=== PATIENT | female | born 1975 | race Caucasian/White ===

== ENCOUNTER 2018-12-13 00:51 | Emergency (ER) | payer MEDICAID ==
[~2018-12-13] VITALS: Ht 162.6 cm; Wt 63.6 kg
[~2018-12-13 00:51] MED LIST: NO HOME MEDS
[2018-12-13 01:50] LABS: ALANINE AMINOTRANSFERASE 46 U/L (12-78); ALKALINE PHOSPHATASE 79 IU/L (46-116); ANION GAP 12 (8-16); ASPARTATE AMINO TRANSFERASE 21 U/L (10-37); BILIRUBIN,TOTAL 0.5 MG/DL (0.1-1.0); BLOOD UREA NITROGEN 9 MG/DL (7-18); CHLORIDE 102 MMOL/L (99-107); CREATININE 0.75 MG/DL (0.40-0.90); GLUCOSE 109 MG/DL (70-104); POTASSIUM 3.7 MMOL/L (3.5-5.1); SODIUM 136 MMOL/L (135-145); TOTAL CARBON DIOXIDE 22.5 MMOL/L (24-32); TOTAL PROTEIN 8.2 G/DL (6.4-8.2); eGFR 85 ML/MIN
[2018-12-13 01:56] LABS: URINE HCG NEGATIVE (NEG)
[2018-12-13] MEDS ORDERED: normal saline 1000ML IV soln IVB ONE (02:00)
[2018-12-13] MEDS ORDERED: famotidine/PF 10 mg/ml inj IV ONE (02:00)
[2018-12-13] MEDS ORDERED: LIDOcaine Viscous 15ml cup MM PRN (02:00)
[2018-12-13] MEDS ORDERED: morphine 4 MG/ML inj SYRINge IV ONE (02:00)
[2018-12-13] MEDS ORDERED: ondansetron/PF 4mg/2ml inj IV ONE (02:00)
[2018-12-13] MEDS ORDERED: mag hydrox/Alum hydrox/simeth 30ml oral suspension PO ONE (02:00)
[2018-12-13 02:09] LABS: BASOPHILS % (AUTO) 0.6 % (0-1); EOSINOPHILS # (AUTO) 0.2 X10'3 (0-0.9); EOSINOPHILS % (AUTO) 1.9 % (0-6); HEMOGLOBIN 13.7 g/dl (12.0-16.0); LYMPHOCYTES % (AUTO) 24.4 % (21-51); MEAN CORPUSCULAR HEMOGLOBIN 27.2 PG (27.0-31.0); MEAN CORPUSCULAR HGB CONC 33.5 g/dL (33.0-36.5); MEAN CORPUSCULAR VOLUME 81.1 FL (78-98); MEAN PLATELET VOLUME 9.8 FL (7.4-10.4); MONOCYTES # (AUTO) 0.6 X10'3 (0-0.9); MONOCYTES % (AUTO) 7.6 % (2-12); NEUTROPHILS # (AUTO) 5.3 X10'3 (1.8-7.7); NEUTROPHILS % (AUTO) 65.5 % (42-75); PLATELET COUNT 137 X10'3 (140-440); RED BLOOD COUNT 5.05 X10'6 (4.20-5.60); WHITE BLOOD COUNT 8.1 X10'3 (4.5-11.0)
[2018-12-13 02:10] LABS: CLARITY,URINE CLOUDY (Clear); COLOR,URINE YELLOW (Yellow); GLUCOSE, URINE NEGATIVE (Neg); KETONES,URINE NEGATIVE (Neg); LEUKOCYTE ESTERASE ,URINE NEGATIVE (Neg); NITRITES, URINE NEGATIVE (Neg); OCCULT BLOOD,URINE NEGATIVE (Neg); PROTEIN,URINE NEGATIVE (Neg); UROBILINOGEN,URINE 0.2 E.U/dL (0.2-1.0)
[2018-12-13 02:36] LABS: UA COLLECTION TYPE VOIDED
[2018-12-13 02:38] LABS: BACTERIA,URINE NONE SEEN /HPF (Neg); MUCUS STRANDS FEW /LPF (Neg); RBC,URINE NONE SEEN /HPF (0-2); SQUAMOUS EPITHELIAL CELL,UR FEW /LPF (FEW); WBC,URINE 0-4 /HPF (0-4)
[2018-12-13] MEDS ORDERED: FAMO-128 PO (02:45)
[2018-12-13 03:19] VITALS: BP 144/89
== END 2018-12-13 03:26 | disposition home or self-care (01) ==
LOC: VAS 00:51
DX: K29.70 Gastritis, unspecified, without bleeding (principal); Z90.49 Acquired absence of other specified parts of digestive tract; Z98.51 Tubal ligation status; Z79.899 Other long term (current) drug therapy
CPT/HCPCS: 36415; 80053; 81001; 81025; 85025; 85610; 96361; 96374; 96375; 99283; J7030; J2270; J2405; J3490

== ENCOUNTER 2020-05-13 15:28 | Emergency (ER) | payer MEDICAID ==
[~2020-05-13] VITALS: Ht 165.1 cm; Wt 64.5 kg
[~2020-05-13 15:28] MED LIST changes: +FAMO-128 PO
[2020-05-13 16:10] LABS: BASOPHILS % (AUTO) 0.8 % (0-1); EOSINOPHILS # (AUTO) 0.1 X10'3 (0-0.9); EOSINOPHILS % (AUTO) 2.7 % (0-6); HEMATOCRIT 37.7 % (35.0-45.0); HEMOGLOBIN 12.8 g/dl (12.0-16.0); LYMPHOCYTES # (AUTO) 1.8 X10'3 (1.1-4.8); LYMPHOCYTES % (AUTO) 37.1 % (21-51); MEAN CORPUSCULAR HEMOGLOBIN 27.1 PG (27.0-31.0); MEAN CORPUSCULAR HGB CONC 33.9 g/dL (33.0-36.5); MEAN CORPUSCULAR VOLUME 79.7 FL (78-98); MEAN PLATELET VOLUME 8.7 FL (7.4-10.4); MONOCYTES # (AUTO) 0.4 X10'3 (0-0.9); MONOCYTES % (AUTO) 8.1 % (2-12); NEUTROPHILS # (AUTO) 2.5 X10'3 (1.8-7.7); NEUTROPHILS % (AUTO) 51.3 % (42-75); PLATELET COUNT 217 X10'3 (140-440); RED BLOOD COUNT 4.73 X10'6 (4.20-5.60); RED CELL DISTRIBUTION WIDTH 13.5 % (11.5-14.5); WHITE BLOOD COUNT 4.9 X10'3 (4.5-11.0)
[2020-05-13 16:24] LABS: ALANINE AMINOTRANSFERASE 23 U/L (12-78); ALBUMIN/GLOBULIN RATIO 0.9 (1.1-1.5); ALKALINE PHOSPHATASE 75 IU/L (46-116); ANION GAP 9 (8-16); ASPARTATE AMINO TRANSFERASE 14 U/L (10-37); BILIRUBIN,TOTAL 0.2 MG/DL (0.1-1.0); BLOOD UREA NITROGEN 17 MG/DL (7-18); BUN/CREATININE RATIO 23.9 (6.6-38.0); CALCIUM 8.8 MG/DL (8.5-10.1); CHLORIDE 102 MMOL/L (99-107); CREATININE 0.71 MG/DL (0.40-0.90); GLUCOSE 94 MG/DL (70-104); POTASSIUM 3.6 MMOL/L (3.5-5.1); SODIUM 137 MMOL/L (135-145); TOTAL PROTEIN 8.3 G/DL (6.4-8.2); eGFR 90 ML/MIN
[2020-05-13] MEDS ORDERED: acetaminophen 325mg tablet PO ONE (17:25)
[2020-05-13 17:26] VITALS: BP 106/65
[2020-05-13 17:45] LABS: CLARITY,URINE CLEAR (Clear); COLOR,URINE YELLOW (Yellow); GLUCOSE, URINE NEGATIVE (Neg); KETONES,URINE NEGATIVE (Neg); LEUKOCYTE ESTERASE ,URINE SMALL (Neg); NITRITES, URINE NEGATIVE (Neg); OCCULT BLOOD,URINE TRACE-INTACT (Neg); PROTEIN,URINE NEGATIVE (Neg); UROBILINOGEN,URINE 0.2 E.U/dL (0.2-1.0)
[2020-05-13 17:48] LABS: UA COLLECTION TYPE CLN CATCH MIDSTREAM
[2020-05-13 17:55] LABS: BACTERIA,URINE FEW /HPF (Neg); RBC,URINE 0-2 /HPF (0-2); SQUAMOUS EPITHELIAL CELL,UR MODERATE /LPF (FEW); WBC,URINE 0-4 /HPF (0-4)
[2020-05-13 17:56] LABS: MUCUS STRANDS FEW /LPF (Neg); RENAL CELLS, URINE FEW /HPF; TRANSITIONAL EPI CELLS,URINE FEW /HPF
== END 2020-05-13 18:37 | disposition home or self-care (01) ==
LOC: ER 15:29
DX: S39.012A Strain of muscle, fascia and tendon of lower back, initial encounter (principal); R55 Syncope and collapse; M54.5 Low back pain; Z90.49 Acquired absence of other specified parts of digestive tract; Z98.51 Tubal ligation status; Z79.899 Other long term (current) drug therapy; W18.39XA Other fall on same level, initial encounter; Z91.81 History of falling; Y93.E8 Activity, other personal hygiene; Y92.091 Bathroom in other non-institutional residence as the place of occurrence of the external cause; Y99.8 Other external cause status
CPT/HCPCS: 36415; 71045; 80053; 81001; 83880; 84484; 85025; 87088; 93005; 99285

== ENCOUNTER 2022-05-11 01:05 | Emergency (ER) | payer MEDICAID ==
[~2022-05-11] VITALS: Ht 165.1 cm; Wt 66.4 kg
[~2022-05-11 01:05] MED LIST changes: -FAMO-128 PO
[2022-05-11 02:53] VITALS: BP 129/87
[2022-05-11] MEDS ORDERED: acetaminophen 325mg tablet PO ONE (03:05)
== END 2022-05-11 03:21 | disposition left against medical advice (07) ==
LOC: ER 01:05
DX: R07.81 Pleurodynia (principal); Z53.21 Procedure and treatment not carried out due to patient leaving prior to being seen by health care provider

== ENCOUNTER 2023-01-22 08:50 | Outpatient (CLI) | payer MEDICAID | END 2023-01-22 23:59 | disposition home or self-care (01) | LOC: RAD 08:50 | PROVIDERS: ATTEND Family Medicine | DX: K80.20 Calculus of gallbladder without cholecystitis without obstruction (principal); K76.0 Fatty (change of) liver, not elsewhere classified; R10.9 Unspecified abdominal pain | CPT/HCPCS: 76700 ==

== ENCOUNTER 2023-03-26 11:35 | Day surgery (SDC) | payer MEDICAID ==
[~2023-03-26] VITALS: Ht 165.1 cm; Wt 66.7 kg
[2023-03-26] VITALS (9 sets, daily range): BP systolic 125–157; BP diastolic 83–95; PULSE 74–102; RESP 14–26; TEMP 98.4; O2SAT 98–100
[~2023-03-26 11:35] MED LIST changes: +BUPIVAcaine 2.5mg/ml inj 50ml vial (contains preservative) ONE; +INDOCYANINE GREEN 25 MG/10 ML VIAL IV ONE; +LIDOcaine 1% 30ml preserv. free vial ONE; +cefazolin 2gm/D5W 100mL 100 ML IV ONE; +famotidine 20mg tablet PO ONE; +ringers solution, lacted 1,000 ML IV SCH
[2023-03-26] MEDS ORDERED: neostigmine methylsulfate 1 MG/ML 10ml vial ONE (14:04)
[2023-03-26] MEDS ORDERED: sevoflurane 250ml liquid IH ONE (14:04)
[2023-03-26] MEDS ORDERED: glycopyrrolate 0.2mg/ml inj ONE (14:04)
[2023-03-26] MEDS ORDERED: fentaNYL/PF 50MCG/1 ML 2ML syringe ONE (14:09)
[2023-03-26] MEDS ORDERED: midazolam 1 mg/ML 2ml injection ONE (14:10)
[2023-03-26] MEDS ORDERED: morphine 4 MG/ML inj SYRINge IV PRN (14:20)
[2023-03-26] MEDS ORDERED: ringers solution, lacted 1,000 ML IV SCH (14:20)
[2023-03-26] MEDS ORDERED: ondansetron/PF 4mg/2ml inj IV PRN (14:20)
[2023-03-26] MEDS ORDERED: meperidine/PF 25mg/ml syringe IV PRN ×3 (14:20)
[2023-03-26] MEDS ORDERED: morphine 2 MG/ML inj. syringe IV PRN (14:20)
[2023-03-26] MEDS ORDERED: proCHLORperazine 10 MG/2 ml inj IV PRN (14:20)
[2023-03-26] MEDS ORDERED: propofol inj 20 ML IV ONE (14:42)
[2023-03-26] MEDS ORDERED: LIDOcaine 2% (20mg/ml) 5ml vial ONE (14:42)
[2023-03-26] MEDS ORDERED: dexamethasone sod phosphate 4mg/ml inj. ONE (14:42)
[2023-03-26] MEDS ORDERED: ondansetron/PF 4mg/2ml inj ONE (14:42)
[2023-03-26] MEDS ORDERED: rocuronium 10mg/ml inj IV ONE (14:42)
[2023-03-26] MEDS ORDERED: acetaminophen 1,000mg/100ml IV 100 ML IV ONE ×2 (14:43)
[2023-03-26] MEDS ORDERED: metoprolol tartrate 1mg/ml inj IV ONE (14:46)
[2023-03-26] MEDS ORDERED: LIDOcaine 1% 30ml preserv. free vial IJ ONE (14:50)
[2023-03-26] MEDS ORDERED: BUPIVAcaine/PF 2.5 mg/ml (0.25%) 30ml vial IJ ONE (14:50)
[2023-03-26] MEDS ORDERED: meperidine/PF 25mg/ml syringe ONE (15:38)
[2023-03-26] MEDS ORDERED: oxyCODONE/APAP 5-325mg tablet PO PRN (16:10)
== END 2023-03-26 16:45 | disposition home or self-care (01) ==
LOC: PAS 11:35
PROVIDERS: ATTEND Surgery
DX: K80.10 Calculus of gallbladder with chronic cholecystitis without obstruction (principal); Z98.51 Tubal ligation status; Z98.890 Other specified postprocedural states; Z79.899 Other long term (current) drug therapy
CPT/HCPCS: 47563; 82948; J0131; J0690; J1100; J2175; J2250; J2405; J2704; J2710; J3010; J3490; J7030; J7120; S2900; Z7506; Z7508; Z7512; A4215; A4618; A7000

== ENCOUNTER 2023-03-30 14:48 | Emergency (ER) | payer MEDICAID ==
[~2023-03-30] VITALS: Ht 165.1 cm; Wt 55.0 kg
[~2023-03-30 14:48] MED LIST changes: -BUPIVAcaine 2.5mg/ml inj 50ml vial (contains preservative) ONE; -INDOCYANINE GREEN 25 MG/10 ML VIAL IV ONE; -LIDOcaine 1% 30ml preserv. free vial ONE; -cefazolin 2gm/D5W 100mL 100 ML IV ONE; -famotidine 20mg tablet PO ONE; -ringers solution, lacted 1,000 ML IV SCH
[2023-03-30 15:20] VITALS: TEMP 97.8
[2023-03-30] MEDS ORDERED: morphine 4 MG/ML inj SYRINge IV ONE (16:00)
[2023-03-30 16:37] LABS: BASOPHILS % (AUTO) 0.2 % (0-1); EOSINOPHILS # (AUTO) 0.1 X10'3 (0-0.9); EOSINOPHILS % (AUTO) 0.7 % (0-6); HEMATOCRIT 42.2 % (35.0-45.0); HEMOGLOBIN 14.1 g/dl (12.0-16.0); LYMPHOCYTES # (AUTO) 1.3 X10'3 (1.1-4.8); LYMPHOCYTES % (AUTO) 12.3 % (21-51); MEAN CORPUSCULAR HEMOGLOBIN 28.9 PG (27.0-31.0); MEAN CORPUSCULAR HGB CONC 33.4 g/dL (33.0-36.5); MEAN CORPUSCULAR VOLUME 86.6 FL (78-98); MEAN PLATELET VOLUME 8.4 FL (7.4-10.4); MONOCYTES # (AUTO) 0.5 X10'3 (0-0.9); MONOCYTES % (AUTO) 4.8 % (2-12); NEUTROPHILS # (AUTO) 8.5 X10'3 (1.8-7.7); PLATELET COUNT 208 X10'3 (140-440); RED BLOOD COUNT 4.87 X10'6 (4.20-5.60); RED CELL DISTRIBUTION WIDTH 13.1 % (11.5-14.5); WHITE BLOOD COUNT 10.4 X10'3 (4.5-11.0)
[2023-03-30 16:39] LABS: URINE HCG NEGATIVE (NEG)
[2023-03-30 16:48] LABS: ALANINE AMINOTRANSFERASE 51 U/L (12-78); ALBUMIN 3.9 G/DL (3.4-5.0); ALBUMIN/GLOBULIN RATIO 0.8 (1.1-1.5); ALKALINE PHOSPHATASE 96 IU/L (46-116); ANION GAP 14 (8-16); ASPARTATE AMINO TRANSFERASE 30 U/L (10-37); BILIRUBIN,TOTAL 0.6 MG/DL (0.1-1.0); BLOOD UREA NITROGEN 11 MG/DL (7-18); BUN/CREATININE RATIO 15.1 (10.0-20.0); CALCIUM 9.2 MG/DL (8.5-10.1); CHLORIDE 99 MMOL/L (99-107); CREATININE 0.73 MG/DL (0.40-0.90); GLUCOSE 132 MG/DL (70-104); LIPASE 39 U/L (16-77); POTASSIUM 3.3 MMOL/L (3.5-5.1); SODIUM 137 MMOL/L (135-145); TOTAL CARBON DIOXIDE 24.4 MMOL/L (24-32); TOTAL PROTEIN 8.8 G/DL (6.4-8.2); eCRCL 85 ML/MIN; eGFR 86 ML/MIN
[2023-03-30] MEDS ORDERED: acetaminophen 325mg tablet PO ONE (17:45)
[2023-03-30 17:53] VITALS: BP 172/96; PULSE 74; RESP 16; O2SAT 96
== END 2023-03-30 18:09 | disposition home or self-care (01) ==
LOC: ER 14:48
DX: G89.18 Other acute postprocedural pain (principal); R10.9 Unspecified abdominal pain
CPT/HCPCS: 36415; 80053; 81025; 83690; 85025; 96374; 99283; J2270

== ENCOUNTER 2023-03-31 10:04 | Inpatient (IN) | payer MEDICAID ==
[~2023-03-31] VITALS: Ht 170.2 cm; Wt 65.4 kg
[2023-03-31 11:11] LABS: BASOPHILS % (AUTO) 0.1 % (0-1); EOSINOPHILS # (AUTO) 0.1 X10'3 (0-0.9); EOSINOPHILS % (AUTO) 0.5 % (0-6); HEMATOCRIT 44.4 % (35.0-45.0); HEMOGLOBIN 15.2 g/dl (12.0-16.0); LYMPHOCYTES # (AUTO) 1.3 X10'3 (1.1-4.8); LYMPHOCYTES % (AUTO) 8.7 % (21-51); MEAN CORPUSCULAR HEMOGLOBIN 28.9 PG (27.0-31.0); MEAN CORPUSCULAR HGB CONC 34.2 g/dL (33.0-36.5); MEAN CORPUSCULAR VOLUME 84.5 FL (78-98); MEAN PLATELET VOLUME 8.4 FL (7.4-10.4); MONOCYTES # (AUTO) 0.8 X10'3 (0-0.9); MONOCYTES % (AUTO) 5.8 % (2-12); NEUTROPHILS # (AUTO) 12.3 X10'3 (1.8-7.7); NEUTROPHILS % (AUTO) 84.9 % (42-75); PLATELET COUNT 321 X10'3 (140-440); RED BLOOD COUNT 5.25 X10'6 (4.20-5.60); RED CELL DISTRIBUTION WIDTH 13.1 % (11.5-14.5); WHITE BLOOD COUNT 14.6 X10'3 (4.5-11.0)
[2023-03-31 11:35] LABS: ALANINE AMINOTRANSFERASE 68 U/L (12-78); ALBUMIN/GLOBULIN RATIO 0.8 (1.1-1.5); ALKALINE PHOSPHATASE 117 IU/L (46-116); ANION GAP 12 (8-16); ASPARTATE AMINO TRANSFERASE 51 U/L (10-37); BILIRUBIN,TOTAL 1.4 MG/DL (0.1-1.0); BLOOD UREA NITROGEN 10 MG/DL (7-18); BUN/CREATININE RATIO 13.7 (10.0-20.0); CALCIUM 9.1 MG/DL (8.5-10.1); CHLORIDE 96 MMOL/L (99-107); CREATININE 0.73 MG/DL (0.40-0.90); GLUCOSE 154 MG/DL (70-104); POTASSIUM 3.4 MMOL/L (3.5-5.1); SODIUM 133 MMOL/L (135-145); TOTAL CARBON DIOXIDE 25.3 MMOL/L (24-32); eCRCL 95 ML/MIN; eGFR 86 ML/MIN
[2023-03-31] MEDS ORDERED: ondansetron 4mg rapidly disintigrating tab PO ONE (14:35)
[2023-03-31] MEDS ORDERED: morphine 4 MG/ML inj SYRINge IV ONE (14:35)
[2023-03-31] MEDS ORDERED: normal saline 1000ml 1,000 ML IV ONE ×2 (14:35→16:40)
[2023-03-31] MEDS ORDERED: iohexol 300mg/ml 100ml inj. ONE (14:52)
[2023-03-31 15:37] LABS: BILIRUBIN,URINE MODERATE (Neg); CLARITY,URINE CLOUDY (Clear); COLOR,URINE YELLOW (Yellow); GLUCOSE, URINE 100 mg/dl (Neg); KETONES,URINE TRACE mg/dl (Neg); LEUKOCYTE ESTERASE ,URINE NEGATIVE (Neg); NITRITES, URINE NEGATIVE (Neg); OCCULT BLOOD,URINE SMALL (Neg); PH,URINE 5.5 (4.8-8.0); PROTEIN,URINE 100 mg/dl (Neg)
[2023-03-31 15:42] LABS: UA COLLECTION TYPE CLN CATCH MIDSTREAM
[2023-03-31 15:43] LABS: HYALINE CASTS >30 /LPF (NEGATIVE); SQUAMOUS EPITHELIAL CELL,UR MANY /LPF (FEW)
[2023-03-31 15:44] LABS: COARSE GRANULAR CAST 0-3 /LPF (NEGATIVE); MUCUS STRANDS MANY /LPF (Neg)
[2023-03-31 15:49] LABS: BACTERIA,URINE 2+ /HPF (Neg)
[2023-03-31 15:50] LABS: TRANSITIONAL EPI CELLS,URINE MODERATE /HPF
[2023-03-31] MEDS ORDERED: potassium Cl 20 mEq SR tablet PO STA (16:39)
[2023-03-31] MEDS ORDERED: magnesium 2GM in 50ml NS 50 ML IV ONE (16:55)
[2023-03-31] MEDS ORDERED: HYDROcodone/acetaminophen 5mg/325mg tablet PO PRN (17:40)
[2023-03-31] MEDS ORDERED: magnesium hydroxide 30ml (MOM) UD suspension PO PRN (17:40)
[2023-03-31] MEDS ORDERED: NORMAL SALINE IV ONE (17:40)
[2023-03-31] MEDS ORDERED: potassium Cl 20 mEq SR tablet PO PRN (17:40)
[2023-03-31] MEDS ORDERED: HYDROmorphone inj. 0.5 MG/0.5 ML DISP.SYRIN IV PRN (17:40)
[2023-03-31] MEDS: normal saline 1000ml 1,000 ML IV SCH (17:40)
[2023-03-31] MEDS ORDERED: SINCALIDE IV ONE (17:40)
[2023-03-31] MEDS ORDERED: magnesium 4gm in 100ml NS 100 ML IV PRN (17:40)
[2023-03-31] MEDS ORDERED: magnesium 2GM in 50ml NS 50 ML IV PRN (17:40)
[2023-03-31] MEDS ORDERED: mag hydrox/Alum hydrox/simeth 30ml oral suspension PO PRN (17:40)
[2023-03-31] MEDS ORDERED: potassium Cl 40MEQ/1/2NS 520ml 520 ML IV PRN (17:40)
[2023-03-31] MEDS ORDERED: HYDROmorphone/PF 0.2 MG/ML SYRINGE IV PRN (17:40)
[2023-03-31] MEDS ORDERED: ondansetron/PF 4mg/2ml inj IV PRN (17:40)
[2023-03-31] MEDS ORDERED: acetaminophen 325mg tablet PO PRN ×2 (17:40)
[2023-03-31] MEDS ORDERED: hydrALAZINE 20mg/ml inj. IV ONE (17:55)
[2023-03-31] MEDS: K and/or MAG REPLACEMENT MC SCH (19:58)
[2023-03-31] MEDS: docusate sod 100mg capsule PO SCH (20:04)
[2023-03-31] MEDS: potassium Cl 20 mEq SR tablet PO PRN (20:04)
[2023-03-31 22:40] VITALS: RESP 16; O2SAT 99
[2023-03-31 22:45] VITALS: BP 161/95; PULSE 107; RESP 15; TEMP 98.1; O2SAT 98
[2023-04-01] VITALS (19 sets, daily range): BP systolic 106–171; BP diastolic 59–101; PULSE 92–128; RESP 15–26; TEMP 97.9–99.4; O2SAT 95–99
[2023-04-01] MEDS: piperacillin/tazo 4.5gm/100ml 100 ML IV SCH ×3 (00:04→19:02)
[2023-04-01] MEDS ORDERED: ketorolac trometh. 30mg/ml inj. IV PRN (00:20)
[2023-04-01] MEDS: normal saline 1000ml 1,000 ML IV SCH ×3 (04:00→19:02)
[2023-04-01] MEDS: docusate sod 100mg capsule PO SCH ×2 (07:03→20:00)
[2023-04-01] MEDS: hydrALAZINE 20mg/ml inj. IV PRN ×2 (07:03→13:39)
[2023-04-01 07:10] LABS: BASOPHILS % (AUTO) 0.3 % (0-1); EOSINOPHILS # (AUTO) 0.2 X10'3 (0-0.9); EOSINOPHILS % (AUTO) 1.6 % (0-6); HEMATOCRIT 38.7 % (35.0-45.0); LYMPHOCYTES # (AUTO) 1.1 X10'3 (1.1-4.8); LYMPHOCYTES % (AUTO) 10.7 % (21-51); MEAN CORPUSCULAR HEMOGLOBIN 28.8 PG (27.0-31.0); MEAN CORPUSCULAR HGB CONC 33.6 g/dL (33.0-36.5); MEAN CORPUSCULAR VOLUME 85.7 FL (78-98); MEAN PLATELET VOLUME 8.3 FL (7.4-10.4); MONOCYTES # (AUTO) 0.9 X10'3 (0-0.9); MONOCYTES % (AUTO) 8.8 % (2-12); NEUTROPHILS # (AUTO) 8.1 X10'3 (1.8-7.7); NEUTROPHILS % (AUTO) 78.6 % (42-75); PLATELET COUNT 250 X10'3 (140-440); RED BLOOD COUNT 4.52 X10'6 (4.20-5.60); RED CELL DISTRIBUTION WIDTH 13.3 % (11.5-14.5); WHITE BLOOD COUNT 10.3 X10'3 (4.5-11.0)
[2023-04-01 07:34] LABS: ALANINE AMINOTRANSFERASE 73 U/L (12-78); ALBUMIN 2.9 G/DL (3.4-5.0); ALBUMIN/GLOBULIN RATIO 0.7 (1.1-1.5); ALKALINE PHOSPHATASE 124 IU/L (46-116); ANION GAP 10 (8-16); ASPARTATE AMINO TRANSFERASE 56 U/L (10-37); BILIRUBIN,TOTAL 1.7 MG/DL (0.1-1.0); BLOOD UREA NITROGEN 7 MG/DL (7-18); BUN/CREATININE RATIO 9.9 (10.0-20.0); CALCIUM 7.4 MG/DL (8.5-10.1); CHLORIDE 105 MMOL/L (99-107); CREATININE 0.71 MG/DL (0.40-0.90); GLUCOSE 122 MG/DL (70-104); MAGNESIUM 2.8 MG/DL (1.5-2.4); POTASSIUM 4.3 MMOL/L (3.5-5.1); SODIUM 136 MMOL/L (135-145); TOTAL CARBON DIOXIDE 21.3 MMOL/L (24-32); TOTAL PROTEIN 7.3 G/DL (6.4-8.2); eCRCL 97 ML/MIN; eGFR 89 ML/MIN
[2023-04-01] MEDS: K and/or MAG REPLACEMENT MC SCH ×2 (08:00→20:00)
[2023-04-01] MEDS ORDERED: bisacodyl 10mg suppository rectal RC STA (08:21)
[2023-04-01] MEDS ORDERED: bisacodyl 10mg suppository rectal RC PRN (08:25)
[2023-04-01] MEDS: metoclopramide 5 mg/ml inj IV SCH ×3 (08:50→20:02)
[2023-04-01] MEDS ORDERED: iohexol 300 MG/1 ML 50ml polymer ONE (14:29)
[2023-04-01] MEDS ORDERED: iohexol 300mg/ml 100ml inj. ONE (14:30)
[2023-04-01] MEDS ORDERED: glucagon, human recombinant 1mg kit ONE (15:22)
[2023-04-01] MEDS ORDERED: LIDOcaine Viscous 15ml cup ONE (15:22)
[2023-04-01] MEDS ORDERED: diphenhydrAMINE 50 mg/ml inj ONE (15:22)
[2023-04-01] MEDS ORDERED: fentaNYL/PF 50MCG/1 ML 2ML syringe ONE ×2 (16:30→17:03)
[2023-04-01] MEDS ORDERED: MIDAZolam 1 MG/ML 5ML VIAL ONE (16:30)
[2023-04-01] MEDS: HYDROcodone/acetaminophen 10/325mg tab PO PRN (20:16)
[2023-04-02] VITALS (7 sets, daily range): BP systolic 115–167; BP diastolic 62–91; PULSE 83–100; RESP 14–18; TEMP 98.2–98.9; O2SAT 96–99
[2023-04-02] MEDS: piperacillin/tazo 4.5gm/100ml 100 ML IV SCH ×4 (01:28→23:53)
[2023-04-02] MEDS: metoclopramide 5 mg/ml inj IV SCH (02:49)
[2023-04-02] MEDS: HYDROcodone/acetaminophen 10/325mg tab PO PRN (02:50)
[2023-04-02] MEDS: normal saline 1000ml 1,000 ML IV SCH ×2 (04:57→15:30)
[2023-04-02 06:29] LABS: HEMOGLOBIN 11.3 g/dl (12.0-16.0)
[2023-04-02 06:32] LABS: BASOPHILS % (AUTO) 0.4 % (0-1); EOSINOPHILS # (AUTO) 0.3 X10'3 (0-0.9); EOSINOPHILS % (AUTO) 3.6 % (0-6); HEMATOCRIT 33.3 % (35.0-45.0); LYMPHOCYTES # (AUTO) 0.9 X10'3 (1.1-4.8); LYMPHOCYTES % (AUTO) 10.3 % (21-51); MEAN CORPUSCULAR HEMOGLOBIN 29.4 PG (27.0-31.0); MEAN CORPUSCULAR HGB CONC 33.9 g/dL (33.0-36.5); MEAN CORPUSCULAR VOLUME 86.7 FL (78-98); MEAN PLATELET VOLUME 8.1 FL (7.4-10.4); MONOCYTES # (AUTO) 0.6 X10'3 (0-0.9); MONOCYTES % (AUTO) 6.3 % (2-12); NEUTROPHILS # (AUTO) 7.3 X10'3 (1.8-7.7); NEUTROPHILS % (AUTO) 79.4 % (42-75); PLATELET COUNT 221 X10'3 (140-440); RED BLOOD COUNT 3.85 X10'6 (4.20-5.60); WHITE BLOOD COUNT 9.1 X10'3 (4.5-11.0)
[2023-04-02 06:42] LABS: ALANINE AMINOTRANSFERASE 53 U/L (12-78); ALBUMIN 2.5 G/DL (3.4-5.0); ALBUMIN/GLOBULIN RATIO 0.7 (1.1-1.5); ALKALINE PHOSPHATASE 122 IU/L (46-116); ANION GAP 12 (8-16); ASPARTATE AMINO TRANSFERASE 33 U/L (10-37); BILIRUBIN,TOTAL 1.6 MG/DL (0.1-1.0); BLOOD UREA NITROGEN 11 MG/DL (7-18); BUN/CREATININE RATIO 17.2 (10.0-20.0); CALCIUM 7.1 MG/DL (8.5-10.1); CHLORIDE 105 MMOL/L (99-107); CREATININE 0.64 MG/DL (0.40-0.90); GLUCOSE 90 MG/DL (70-104); MAGNESIUM 2.6 MG/DL (1.5-2.4); POTASSIUM 3.4 MMOL/L (3.5-5.1); SODIUM 137 MMOL/L (135-145); TOTAL CARBON DIOXIDE 20.4 MMOL/L (24-32); TOTAL PROTEIN 6.2 G/DL (6.4-8.2); eCRCL 108 ML/MIN; eGFR > 90 ML/MIN
[2023-04-02] MEDS: K and/or MAG REPLACEMENT MC SCH ×2 (08:00→19:43)
[2023-04-02] MEDS ORDERED: mineral oil 133ml enema RC ONE (08:10)
[2023-04-02] MEDS ORDERED: mineral oil 133ml enema RC SCH (08:10)
[2023-04-02] MEDS: docusate sod 100mg capsule PO SCH ×2 (08:52→19:38)
[2023-04-02] MEDS: potassium Cl 20 mEq SR tablet PO PRN ×3 (08:54→19:37)
[2023-04-02] MEDS: lactulose 20gm/30ml cup PO SCH ×2 (15:27→19:38)
[2023-04-02] MEDS: hydrALAZINE 20mg/ml inj. IV PRN (22:58)
[2023-04-03 00:07] VITALS: BP 160/90; PULSE 110
[2023-04-03] MEDS: lactulose 20gm/30ml cup PO SCH ×2 (01:27→09:25)
[2023-04-03 06:00] VITALS: BP 145/81; PULSE 109; RESP 19; TEMP 98.2; O2SAT 97
[2023-04-03 06:32] LABS: BASOPHILS % (AUTO) 0.3 % (0-1); EOSINOPHILS # (AUTO) 0.3 X10'3 (0-0.9); EOSINOPHILS % (AUTO) 3.9 % (0-6); HEMOGLOBIN 11.8 g/dl (12.0-16.0); LYMPHOCYTES # (AUTO) 0.9 X10'3 (1.1-4.8); LYMPHOCYTES % (AUTO) 10.6 % (21-51); MEAN CORPUSCULAR HEMOGLOBIN 29.2 PG (27.0-31.0); MEAN CORPUSCULAR HGB CONC 33.9 g/dL (33.0-36.5); MEAN CORPUSCULAR VOLUME 86.2 FL (78-98); MEAN PLATELET VOLUME 8.2 FL (7.4-10.4); MONOCYTES # (AUTO) 0.6 X10'3 (0-0.9); MONOCYTES % (AUTO) 6.8 % (2-12); NEUTROPHILS # (AUTO) 6.4 X10'3 (1.8-7.7); NEUTROPHILS % (AUTO) 78.4 % (42-75); PLATELET COUNT 223 X10'3 (140-440); RED BLOOD COUNT 4.06 X10'6 (4.20-5.60); RED CELL DISTRIBUTION WIDTH 12.7 % (11.5-14.5); WHITE BLOOD COUNT 8.2 X10'3 (4.5-11.0)
[2023-04-03 06:47] LABS: ALANINE AMINOTRANSFERASE 45 U/L (12-78); ALBUMIN 2.6 G/DL (3.4-5.0); ALBUMIN/GLOBULIN RATIO 0.7 (1.1-1.5); ALKALINE PHOSPHATASE 138 IU/L (46-116); ANION GAP 9 (8-16); ASPARTATE AMINO TRANSFERASE 29 U/L (10-37); BILIRUBIN,TOTAL 1.3 MG/DL (0.1-1.0); BLOOD UREA NITROGEN 4 MG/DL (7-18); BUN/CREATININE RATIO 6.9 (10.0-20.0); CALCIUM 7.8 MG/DL (8.5-10.1); CHLORIDE 105 MMOL/L (99-107); CREATININE 0.58 MG/DL (0.40-0.90); GLUCOSE 104 MG/DL (70-104); POTASSIUM 3.4 MMOL/L (3.5-5.1); SODIUM 134 MMOL/L (135-145); TOTAL CARBON DIOXIDE 20.5 MMOL/L (24-32); TOTAL PROTEIN 6.6 G/DL (6.4-8.2); eCRCL 119 ML/MIN; eGFR > 90 ML/MIN
[2023-04-03] MEDS: K and/or MAG REPLACEMENT MC SCH (08:00)
[2023-04-03 08:30] VITALS: RESP 16; O2SAT 95
[2023-04-03] MEDS: piperacillin/tazo 4.5gm/100ml 100 ML IV SCH (09:25)
[2023-04-03] MEDS: docusate sod 100mg capsule PO SCH (09:30)
[2023-04-03 10:00] VITALS: BP 149/87; PULSE 102; RESP 20; TEMP 98.1; O2SAT 98
[2023-04-03] MEDS: normal saline 1000ml 1,000 ML IV SCH (10:11)
== END 2023-04-03 14:15 | disposition home or self-care (01) ==
LOC: ER 10:04 → ED HOLD 17:46 → EDBEDREQ 18:14 → ORTHO 4S 21:52
PROVIDERS: ADMIT Family Medicine; ATTEND Family Medicine
PROC: 0F798DZ Dilation of Common Bile Duct with Intraluminal Device, Via Natural or Artificial Opening Endoscopic (ICD-10-PCS; principal; 2023-04-01)
DX: K83.9 Disease of biliary tract, unspecified (principal); K56.7 Ileus, unspecified; K91.89 Other postprocedural complications and disorders of digestive system; G89.18 Other acute postprocedural pain; E87.6 Hypokalemia; K59.00 Constipation, unspecified; R74.8 Abnormal levels of other serum enzymes; Y82.8 Other medical devices associated with adverse incidents; Y83.8 Other surgical procedures as the cause of abnormal reaction of the patient, or of later complication, without mention of misadventure at the time of the procedure; Z87.891 Personal history of nicotine dependence; Z90.49 Acquired absence of other specified parts of digestive tract; Z98.51 Tubal ligation status; Y92.89 Other specified places as the place of occurrence of the external cause; Z83.3 Family history of diabetes mellitus
CPT/HCPCS: 36415; 43262; 43274; 74018; 74022; 74177; 78226; 80053; 81001; 83735; 84145; 85025; 87081; 99152; 99153; 99285; A4620; A9537; C1769; C2625; G0378; J0360; J1170; J1200; J1610; J2250; J2270; J2543; J2765; J3010; J3475; J3490; J7030; J7040; Q9967